=== PATIENT | male | born 1980 | race Caucasian/White ===

== ENCOUNTER 2018-07-31 18:41 | Emergency (ER) | payer MEDICAID ==
[~2018-07-31] VITALS: Ht 177.8 cm; Wt 86.4 kg
[2018-07-31 19:02] VITALS: BP 136/86
[2018-07-31] MEDS ORDERED: KETOROLAC TROMETHAMINE 30 MG/ML VIAL IM ONE (19:30)
== END 2018-07-31 20:47 | disposition home or self-care (01) ==
LOC: EMS 18:42
DX: M23.91 Unspecified internal derangement of right knee (principal)
CPT/HCPCS: 73562; 96372; 99283; J1885

== ENCOUNTER 2018-08-06 20:50 | Emergency (ER) | payer MEDICAID ==
[~2018-08-06] VITALS: Ht 175.3 cm; Wt 88.6 kg
[2018-08-06 20:55] VITALS: BP 137/84
[2018-08-06] MEDS: PROPARACAINE HCL 0.5% 15 ML OPHTHALMIC SOLUTION OD ONE (22:24)
[2018-08-06] MEDS: FLUORESCEIN SODIUM 1 MG STRIP OD ONE (22:25)
[2018-08-06] MEDS: IBUPROFEN 800 MG TABLET PO ONE (22:54)
== END 2018-08-06 23:14 | disposition home or self-care (01) ==
LOC: EMS 20:51
DX: S05.01XA Injury of conjunctiva and corneal abrasion without foreign body, right eye, initial encounter (principal); W22.8XXA Striking against or struck by other objects, initial encounter; Y93.89 Activity, other specified; Y92.89 Other specified places as the place of occurrence of the external cause; Y99.8 Other external cause status